=== PATIENT | male | born 1970 | race Caucasian/White ===

== ENCOUNTER 2022-09-13 07:54 | Outpatient (CLI) | payer OTHER, SELFPAY ==
[2022-09-13 14:27] LABS: Albumin* 4.7 g/dL (3.3-5.0); Chloride* 106 mmol/L (96-114)
[2022-09-13 14:28] LABS: Potassium* 4.7 mmol/L (3.6-5.1); Sodium* 142 mmol/L (135-149)
[2022-09-13 14:30] LABS: Carbon Dioxide* 30 mmol/L (20-32); Cholesterol* 264 mg/dL (90-199); Estimated Glomerular Filt Rate 92 ml/min; Total Protein* 7.2 g/dL (6.0-8.3)
[2022-09-13 14:31] LABS: Alanine Aminotransferase* 27 U/L (4-50); Alkaline Phosphatase* 57 U/L (40-150); Aspartate Amino Transferase* 40 U/L (12-35); Bilirubin Total* 0.8 mg/dL (0.1-1.5); Blood Urea Nitrogen* 21 mg/dL (7-30); Calcium* 9.5 mg/dL (8.4-10.6); Glucose* 93 mg/dL (60-115); Triglycerides* 219 mg/dL (40-149)
[2022-09-13 14:32] LABS: HDL Cholesterol* 34 mg/dL (>=40); LDL Cholesterol Calculated 186 mg/dL (<100)
== END 2022-09-13 07:55 | disposition home or self-care (01) ==
LOC: LKVREF 08:00
PROVIDERS: PCP Emergency Medicine; Visit Provider Emergency Medicine
DX: R74.01 Elevation of levels of liver transaminase levels (principal); E78.5 Hyperlipidemia, unspecified; Z12.5 Encounter for screening for malignant neoplasm of prostate; Z13.1 Encounter for screening for diabetes mellitus
CPT/HCPCS: 80053; 80061; 84153

== ENCOUNTER 2022-10-08 10:04 | Outpatient (CLI) | payer OTHER, BC, SELFPAY | END 2022-10-08 10:05 | disposition home or self-care (01) | LOC: OP CLINIC 10:07 | PROVIDERS: PCP Emergency Medicine; Visit Provider Surgery | DX: Z12.11 Encounter for screening for malignant neoplasm of colon (principal); K63.5 Polyp of colon; K57.30 Diverticulosis of large intestine without perforation or abscess without bleeding | CPT/HCPCS: 45385; 88305; J2250; J3010 ==

== ENCOUNTER 2023-01-09 07:59 | Outpatient (CLI) | payer BC, SELFPAY | END 2023-01-09 08:00 | disposition home or self-care (01) | LOC: NFLDREF 01-10 11:04 | PROVIDERS: PCP Emergency Medicine; Referring Provider Emergency Medicine; Visit Provider Emergency Medicine | DX: E78.5 Hyperlipidemia, unspecified (principal) | CPT/HCPCS: 80061 ==